=== PATIENT | female | born 1980 | race Two or more races ===

== ENCOUNTER 2019-09-15 05:47 | Day surgery (SDC) | payer OTHER ==
[2019-09-15] MEDS ORDERED: NEXIUM 24HR20 M1 PO (08:50)
== END 2019-09-15 09:55 | disposition home or self-care (01) ==
LOC: AMB-ENDOS 05:47
DX: K29.50 Unspecified chronic gastritis without bleeding (principal); K44.9 Diaphragmatic hernia without obstruction or gangrene